=== PATIENT | female | born 1975 | race Caucasian/White ===

== ENCOUNTER 2020-01-02 15:02 | Outpatient (CLI) | payer OTHER, SELFPAY ==
--- NOTE | ~2020-01-02 | MM_ITS ---
EXAMINATION: MM screening nunu BI w ayan HISTORY: Screening mammogram TECHNIQUE: Craniocaudal and mediolateral oblique 3-D tomosynthesis images were obtained and synthetic 2-D images were generated. CAD analysis was submitted and interpreted. COMPARISON: Comparison to multiple prior studies sequentially, with oldest reviewed study dated 03/2017. BREAST PARENCHYMAL COMPOSITION: There are scattered areas of fibroglandular density. FINDINGS: There is no evidence of suspicious mass, calcification, or architectural distortion to sugg est malignancy in either breast. There has been no suspicious interval change. IMPRESSION: 1. No mammographic evidence of malignancy. 2. Recommend routine screening mammography in one year. BI-RADS Category 1: Negative Reviewed, dictated and finalized at location A.
== END 2020-01-02 15:03 | disposition home or self-care (01) ==
LOC: ANHIMG 15:06
PROVIDERS: PCP Family Medicine; Visit Provider Obstetrics & Gynecology
DX: Z12.31 Encounter for screening mammogram for malignant neoplasm of breast (principal)
CPT/HCPCS: 77063; 77067

== ENCOUNTER → 2020-09-03 11:56 | Outpatient (CLI) | payer OTHER, SELFPAY ==
--- NOTE | ~2020-09-03 | US_ITS ---
EXAMINATION: US venous doppler LE EXAM DATE: 09/03/2020 12:31 INDICATION: Localized bilateral leg edema. TECHNIQUE: Multiple grayscale, color flow and Doppler images of the lower extremity deep venous syste ms bilaterally were obtained and reviewed. There is no prior study for comparison. FINDINGS: Right side: The right common femoral, femoral and profunda veins demonstrate normal color flow, respi ratory variation, augmentation and compressibility. Compressibility, color flow confirmed within the right popliteal, posterior tibial, peroneal, and greater saphenous veins. Left side: The left common femoral, femoral and profunda veins demonstrate normal color flow, respira tory variation, augmentation and compressibility. Compressibility, color flow confirmed within the l eft popliteal, posterior tibial, peroneal, and greater saphenous veins. IMPRESSION: 1. No lower extremity deep venous thrombosis bilaterally. Reviewed, dictated and finalized at location A. 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
== END ==
PROVIDERS: Visit Provider Family Medicine
DX: R60.0 Localized edema (principal)
CPT/HCPCS: 93970

== ENCOUNTER 2021-01-08 10:21 | Outpatient (CLI) | payer OTHER, SELFPAY ==
--- NOTE | ~2021-01-08 | MM_ITS ---
EXAMINATION: MM screening nunu BI w ayan HISTORY: Screening mammogram, family history of breast cancer in her mother. TECHNIQUE: Craniocaudal and mediolateral oblique 3-D tomosynthesis images were obtained and synthetic 2-D images were generated. CAD analysis was submitted and interpreted. COMPARISON: 01/02/2020, 12/17/2018, 11/26/2017 BREAST PARENCHYMAL COMPOSITION: There are scattered areas of fibroglandular density. FINDINGS: There is no evidence of suspicious mass, calcification, or architectural distortion to sugg est malignancy in either breast. There has been no suspicious interval change. IMPRESSION: 1. No mammographic evidence of malignancy. 2. Recommend routine screening mammography in one year. BI-RADS Category 1: Negative Reviewed, dictated and finalized at location A.
== END 2021-01-08 10:22 | disposition home or self-care (01) ==
LOC: ANHIMG 10:22
PROVIDERS: PCP Family Medicine; Visit Provider Obstetrics & Gynecology
DX: Z12.31 Encounter for screening mammogram for malignant neoplasm of breast (principal)
CPT/HCPCS: 77063; 77067

== ENCOUNTER 2021-08-20 01:54 | Day surgery (SDC) | payer OTHER, SELFPAY ==
[2021-08-05 09:58] VITALS: BMI 38.5
--- NOTE | 2021-08-20 10:09 | P.PNAN_ITS ---
Anes - Initial Pre Proc Eval Procedure: Operation Date: 08/20/21 11:30 Proposed Procedures p Screening Colonoscopy - Tay Youssef MD Date/Time: 08/20/21 10:09 Surgeon: Tay Youssef MD Pre Op Diagnosis: neoplasm screening Patient Data Age: 45 Gender: F Height: 1.65 m Weight: 105 kg Allergies Allergy/AdvReac Type Severity Reaction Status Date / Time Sulfa (Sulfonamide Allergy Mild Unknown Verified 08/20/21 10:23 Antibiotics) amoxicillin Allergy Unknown Unknown Verified 08/20/21 10:23 Home Medications Medication Instructions Recorded Confirmed Type metoprolol succinate 25 mg See Rx Instructions .ROUTE 04/12/21 08/05/21 Rx tablet,extended release 24 hr .COMPLEX #90 tablet clonazepam 1 mg tablet 1 mg PO DAILY #90 tablet 05/09/21 08/05/21 Rx fycjtaqm-jbj-puik-FA-lutein 1 tablet PO DAILY 08/05/21 08/05/21 History [Multivitamin Women 50 Plus] psyllium seed (sugar) [Fiber 1 tbsp PO DAILY 08/05/21 08/05/21 History Supplement] Patient hx anesthesia problems: none Family hx anesthesia problems: none Results Review: All pre-operative results and documents have been reviewed as part of the pre-operative evaluation. [facility] Past Medical History Medical History (Updated 08/20/21 @ 10:10 by Brenton Coleman MD) Anemia Essential (primary) hypertension Generalized anxiety disorder Nicotine dependence, unspecified, uncomplicated Obesity (BMI 35.0-39.9 without comorbidity) Obsessive compulsive personality disorder Vaginal delivery Surgical History Surgical History Previous section x 3 S/P breast biopsy Family History Family History Grandparent Hypertension Family history of heart disease in male family member before age 55 Diabetes mellitus Mother Family history of elevated blood lipids Family history of malignant neoplasm of breast in first degree relative Father Depression Social History Social History Smoking packs per day: 0.5 Smoking cigarettes per day: 10.0 Years smoked: 10 Smoking pack-years: 5.00 Smoking status: Former smoker Tobacco type: cigarettes Second hand tobacco smoke exposure: No Smoking end date: 10/19/18 Alcohol intake: current Drinks per week: 1 Living arrangements: with family Spiritual care concerns: No Anes - Eval Final PreProcedure Day of Procedure 08/20/21 10:09 Patient weight: obese Heart: regular rate and rhythm Lungs: clear to auscultation and normal air movement Airway: Mallampati scale class II Neurological: alert and oriented Last oral intake: >/= 8 hours ASA classification: III Emergent: no Anesthetic plan: proceed Anesthesia type and monitoring: general GIVS Results Review: All pre-operative results and documents have been reviewed as part of the pre-operative evaluation. Informed Consent: The patient's anesthetic plan and its attendant risks and benefits were discussed with the patient/family/POA. Questions were solicited and answers provided to the satisfaction of the patient/family/POA.
[2021-08-20 10:24] VITALS: BP 140/81; PULSE 125; RESP 18; TEMP 35.8; O2SAT 100; BMI 39.3
[2021-08-20] MEDS: LACTATED RINGERS 1,000 ML 150 ML IV CONT (10:41)
--- NOTE | 2021-08-20 11:31 | PM.HPGS ---
History of Present Illness History of Present Illness Consent: Risks, benefits, and alternatives have been discussed and questions answered. Patient agrees to proceed with procedure. Chief complaint: neoplasm screening Narrative: Roxana Krishnan is a 45 year old female here for first screening colonoscopy Review of Systems Constitutional: Constitutional: Denies headache(s) and Denies weakness Eyes: Eyes: Denies blurry vision ENT: Reports Normal hearing present, Denies headache(s) and Denies neck pain Cardiovascular: Cardiovascular: Denies chest pain and Denies dyspnea Respiratory: Respiratory: Denies dyspnea Gastrointestinal: Gastrointestinal: Reports no additional gastrointestinal complaints Genitourinary: Genitourinary: Denies dysuria Musculoskeletal: Musculoskeletal: Denies neck pain Integumentary/Breasts: Skin/Breast: Denies dry skin Neurologic: Reports Normal hearing present, Denies headache(s) and Denies weakness Psychiatric: Psychiatric: Denies anxiety Endocrine: Endocrine: Denies change in body appearance Hematologic/Lymphatic: Hematologic/Lymphatic: Denies easy bleeding Allergic/Immunologic: Allergic/Immunologic: Denies urticaria PMFSH Past Medical History Medical History (Updated 08/20/21 @ 11:35 by Tay Youssef MD) Anemia Colon cancer screening Essential (primary) hypertension Generalized anxiety disorder Nicotine dependence, unspecified, uncomplicated Obesity (BMI 35.0-39.9 without comorbidity) Obsessive compulsive personality disorder Vaginal delivery Surgical History Surgical History Previous section x 3 S/P breast biopsy Family History Family History Grandparent Hypertension Family history of heart disease in male family member before age 55 Diabetes mellitus Mother Family history of elevated blood lipids Family history of malignant neoplasm of breast in first degree relative Father Depression Social History Social History Smoking packs per day: 0.5 Smoking cigarettes per day: 10.0 Years smoked: 10 Smoking pack-years: 5.00 Smoking status: Former smoker Tobacco type: cigarettes Second hand tobacco smoke exposure: No Smoking end date: 10/19/18 Alcohol intake: current Drinks per week: 1 Living arrangements: with family Spiritual care concerns: No Meds Home Medications and Allergies Home Medications Medication Instructions Recorded Confirmed Type metoprolol succinate 25 mg See Rx Instructions .ROUTE 04/12/21 08/20/21 Rx tablet,extended release 24 hr .COMPLEX #90 tablet clonazepam 1 mg tablet 1 mg PO DAILY #90 tablet 05/09/21 08/20/21 Rx [id number]-bxr-qktt-FA-lutein 1 tablet PO DAILY 08/05/21 08/20/21 History [Multivitamin Women 50 Plus] psyllium seed (sugar) [Fiber 1 tbsp PO DAILY 08/05/21 08/20/21 History Supplement] Allergies Allergy/AdvReac Type Severity Reaction Status Date / Time Sulfa (Sulfonamide Allergy Mild Unknown Verified 08/20/21 10:23 Antibiotics) amoxicillin Allergy Unknown Unknown Verified 08/20/21 10:23 Vital Signs Vital Signs - 24 hr 08/20/21 10:24 Temperature 96.5 F L Pulse Rate 125 H Respiratory Rate 18 Blood Pressure 140/81 Pulse Oximetry 100 Exam Const: General: comfortable and no acute distress HENMT: General nose exam: Normal nares present Eyes: General: appearance normal, both eyes and all related structures Neck: Neck: no JVD Resp: Auscultation: clear to auscultation bilaterally Cardio: Rate: regular rate Rhythm: regular rhythm GI: Inspection: non-distended GI Palp: Yes Soft to palpation Skin: General skin exam: normal color Neuro: General: gait normal Speech: normal speech Extrem: General: normal to inspection Psych: Mental Status: mental status grossly normal
[2021-08-20 12:00] VITALS: BP 108/71; PULSE 89; RESP 22; O2SAT 98
[2021-08-20 12:10] VITALS: BP 135/78; PULSE 101; RESP 17; O2SAT 100
[2021-08-20 12:20] VITALS: BP 131/90; PULSE 89; RESP 25; O2SAT 100
== END 2021-08-20 12:33 | disposition home or self-care (01) ==
PROVIDERS: PCP Family Medicine; Visit Provider Internal Medicine Gastroenterology
PROC: 0DJD8ZZ Inspection of Lower Intestinal Tract, Via Natural or Artificial Opening Endoscopic (ICD-10-PCS; CPT 45378; principal; 2021-08-20 11:30)
DX: Z12.11 Encounter for screening for malignant neoplasm of colon (principal); K64.8 Other hemorrhoids; D64.9 Anemia, unspecified; I10 Essential (primary) hypertension; R46.81 Obsessive-compulsive behavior; Z87.891 Personal history of nicotine dependence; E66.9 Obesity, unspecified; Z68.39 Body mass index [BMI] 39.0-39.9, adult
CPT/HCPCS: 45378; J2704; J7120

== ENCOUNTER 2022-01-23 16:16 | Outpatient (CLI) | payer OTHER, SELFPAY ==
--- NOTE | ~2022-01-23 | MM_ITS ---
EXAMINATION: MM screening nunu BI w ayan HISTORY: Screening TECHNIQUE: Craniocaudal and mediolateral oblique 3-D tomosynthesis images were obtained and synthetic 2-D images were generated. CAD analysis was submitted and interpreted. COMPARISON: Comparison to multiple prior studies sequentially, with oldest reviewed study dated 03/2017. BREAST PARENCHYMAL COMPOSITION: There are scattered areas of fibroglandular density. FINDINGS: There is a mass in the subareolar location of the right breast which is partially obscured by fibroglandular tissue. The left breast is stable without evidence for malignancy. IMPRESSION: 1. Subareolar mass of the right breast 2. Additional mammographic views and possible breast ultrasound are recommended. BI-RADS Category 0: Incomplete: Needs additional imaging evaluation. Reviewed, dictated and finalized at location A. IMPRESSION: 1. Subareolar mass of the right breast 2. Additional mammographic views and possible breast ultrasound are recommended . BI-RADS Category 0: Incomplete: Needs additional imaging evaluation.
== END 2022-01-23 16:17 | disposition home or self-care (01) ==
LOC: ANHIMG 16:18
PROVIDERS: PCP Family Medicine; Visit Provider Obstetrics & Gynecology
DX: Z12.31 Encounter for screening mammogram for malignant neoplasm of breast (principal); R92.8 Other abnormal and inconclusive findings on diagnostic imaging of breast
CPT/HCPCS: 77063; 77067

== ENCOUNTER 2022-02-03 12:16 | Outpatient (CLI) | payer OTHER, SELFPAY ==
--- NOTE | ~2022-02-03 | MMUS_ITS ---
EXAMINATION: MM diagnostic nunu RT w ayan, US breast RT complete HISTORY: Subareolar mass reported on 01/23/2022 screening mammogram TECHNIQUE: Additional 3-D tomosynthesis images of the right breast were performed and synthetic 2-D i mages were generated. Rolled medial and rolled lateral craniocaudal views were performed. CAD analysi s was submitted and interpreted. High resolution complete right breast ultrasound was performed. COMPARISON: 01/23/2022 screening mammogram FINDINGS: MAMMOGRAPHIC FINDINGS: No reproducible suspicious mass is noted. There is mildly nodular fibroglandular stroma which may obs cure small masses. Complete right breast ultrasound examination was performed. ULTRASOUND: The patient was scanned by the technologist and also by Dr. Loza. There is no evidence of focal abnormal solid or cystic lesion or abnormal shadowing of the right [address]. IMPRESSION: 1. No mammographic evidence of malignancy 2. Routine annual mammographic screening is recommended. BI-RADS Category 1: Negative Reviewed, dictated and finalized at location A. IMPRESSION: 1. No mammographic evidence of malignancy 2. Routine annual mammographic screening is recommended. BI-RADS Category 1: Negative
== END 2022-02-03 12:17 | disposition home or self-care (01) ==
LOC: ANHIMG 12:17
PROVIDERS: PCP Family Medicine; Visit Provider Family Medicine
DX: R92.8 Other abnormal and inconclusive findings on diagnostic imaging of breast (principal)
CPT/HCPCS: 76641; 77061; 77065; G0279

== ENCOUNTER 2023-04-01 15:13 | Outpatient (CLI) | payer OTHER, SELFPAY ==
--- NOTE | ~2023-04-01 | MM_ITS ---
EXAMINATION: MM screening nunu BI w ayan HISTORY: Screening mammogram TECHNIQUE: Craniocaudal and mediolateral oblique 3-D tomosynthesis images were obtained and synthetic 2-D images were generated. CAD analysis was submitted and interpreted. COMPARISON: February 03, 2022 diagnostic right mammogram and complete right breast ultrasound examinatio n January 23, 2022, January 08, 2021 bilateral screening mammogram examinations BREAST PARENCHYMAL COMPOSITION: There are scattered areas of fibroglandular density. FINDINGS: There is no evidence of suspicious mass, calcification, or architectural distortion to sugg est malignancy in either breast. There has been no suspicious interval change. IMPRESSION: 1. No mammographic evidence of malignancy. 2. Recommend routine screening mammography in one year. BI-RADS Category 1: Negative Reviewed, dictated and finalized at location A.
== END 2023-04-01 15:14 | disposition home or self-care (01) ==
LOC: ANHIMG 15:15
PROVIDERS: PCP Family Medicine; Visit Provider Obstetrics & Gynecology
DX: Z12.31 Encounter for screening mammogram for malignant neoplasm of breast (principal)
CPT/HCPCS: 77063; 77067

== ENCOUNTER 2024-09-02 08:33 | Outpatient (CLI) | payer OTHER, SELFPAY ==
--- NOTE | ~2024-09-02 | MM_ITS ---
EXAMINATION: MM screening nunu BI w ayan HISTORY: Screening mammogram, family history of breast cancer in her mother. TECHNIQUE: Craniocaudal and mediolateral oblique 3-D tomosynthesis images were obtained and synthetic 2-D images were generated. CAD analysis was submitted and interpreted. COMPARISON: 04/01/2023, 1422, 01/23/2022, 01/08/2021 BREAST PARENCHYMAL COMPOSITION:Not Dense. There are scattered areas of fibroglandular density. FINDINGS: No suspicious mass, calcification, or architectural distortion are identified in either steve ast to suggest malignancy. There has been no suspicious interval change. IMPRESSION: No mammographic evidence of malignancy. Recommend routine screening mammography in one year. BI-RADS Category 1: Negative Reviewed, dictated and finalized at location . 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
== END 2024-09-02 08:34 | disposition home or self-care (01) ==
LOC: ANHIMG 08:34
PROVIDERS: PCP Family Medicine; Visit Provider Obstetrics & Gynecology
DX: Z12.31 Encounter for screening mammogram for malignant neoplasm of breast (principal)
CPT/HCPCS: 77063; 77067

== ENCOUNTER 2025-09-11 10:02 | Outpatient (CLI) | payer OTHER, SELFPAY ==
--- NOTE | ~2025-09-11 | MM_ITS ---
EXAMINATION: MM screening nunu BI w ayan HISTORY: Screening TECHNIQUE: Craniocaudal and mediolateral oblique 3-D tomosynthesis images were obtained and synthetic 2-D images were generated. CAD analysis was submitted and interpreted. COMPARISON: Comparison to multiple prior studies sequentially, with oldest reviewed study dated 01/02/2020. BREAST PARENCHYMAL COMPOSITION: Dense: The breasts are heterogeneously dense, which may obscure small masses FINDINGS: There is developing asymmetry in the upper outer quadrant of the right breast, anterior third. The left breast is stable without suspicious mass, calcification or architectural distortion to suggest malignancy. IMPRESSION: 1. Developing right breast asymmetry. 2. Additional mammographic views and possible breast ultrasound are recommended. BI-RADS Category 0: Incomplete: Needs additional imaging evaluation. Reviewed, dictated and finalized at location O. EX OPERATOR IMPRESSION: 1. Developing right breast asymmetry. 2. Additional mammographic views and possible breast ultrasound are recommended . BI-RADS Category 0: Incomplete: Needs additional imaging evaluation.
== END 2025-09-11 10:03 | disposition home or self-care (01) ==
LOC: ANHFOHIMG 10:04
PROVIDERS: PCP Nurse Practitioner Family; Visit Provider Obstetrics & Gynecology
DX: Z12.31 Encounter for screening mammogram for malignant neoplasm of breast (principal); R92.8 Other abnormal and inconclusive findings on diagnostic imaging of breast
CPT/HCPCS: 77063; 77067

== ENCOUNTER 2025-09-26 10:23 | Outpatient (CLI) | payer OTHER, SELFPAY ==
--- NOTE | ~2025-09-26 | MMUS_ITS ---
EXAMINATION: US breast RT limited, MM diagnostic nunu RT w ayan HISTORY: Additional imaging TECHNIQUE: Craniocaudal and mediolateral oblique 3-D tomosynthesis images were obtained and synthetic 2-D images were generated. CAD analysis was submitted and interpreted. Grayscale sonography over the area(s) of interest with color Doppler if there is a finding. COMPARISON: September 11 BREAST PARENCHYMAL COMPOSITION: Dense: The breasts are heterogeneously dense MAMMOGRAM FINDINGS: A focal asymmetry persists in the retroareolar region. This appears to be superolateral to the nipple. There are no suspicious calcifications. No unexplained architectural distortion is seen. There are no skin or nipple abnormalities identified. There is no adenopathy seen on the images submitted. ULTRASOUND FINDINGS: Superolateral to the nipple is a circumscribed, ovoid, homogeneous, hypoechoic mass with parallel orientation and a maximum dimension of 8 mm. This accounts for the mammographic finding. Incidental note is made of a smaller but similar appearing structure nearby with a maximum dimension of 7 mm. These have appearances consistent with either fibroadenomata or cysts containing echoes. IMPRESSION: No mammographic evidence to suggest malignancy is seen. The patient may return to screening mammography as per ACR guidelines. BI-RADS 2 - Benign. Reviewed, dictated and finalized at location C. 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 The patient may return to screening mammography as per ACR guidelines. BI-RADS 2 - Benign.
== END 2025-09-26 10:24 | disposition home or self-care (01) ==
LOC: ANHFOHIMG 10:24
PROVIDERS: PCP Nurse Practitioner Family; Visit Provider Nurse Practitioner Obstetrics & Gynecology
DX: R92.8 Other abnormal and inconclusive findings on diagnostic imaging of breast (principal)
CPT/HCPCS: 76642; 77061; 77065; G0279